=== PATIENT | female | born 1980 | race Caucasian/White ===

== ENCOUNTER 2018-04-22 09:40 | Inpatient (IN) | payer OTHER ==
--- NOTE | 2018-04-22 11:06 | HP ---
General Information - Reason for Visit Labor - General Information Maternal Age: 37 Grav: 1 Para: 0 SAB: 0 IEA: 0 Estimated Due Date: 04/15/18 Determined By: Early Ultrasound Gestational Age in Weeks/Days: 41 weeks Maternal Blood Type and Rh: B Positive - Results this Serology/RPR Result: Non-Reactive Rubella Result: Immune HBsAg Result: Negative HIV Result: Negative Past Medical History Delivery History: See Records Delivery History Comment: Primip Pertinent Past Medical History: See Records Past Medical History Comment: Hx of back pain Pertinent Past Surgical History: See Records Past Surgical History Comment: 1998 LEEP 2006 Lasik Pertinent Family History: See Records Family History Comment: Father: . Cancer Mother: Thyroid disease - Antepartal Records Antepartal Records: Reviewed, Complicated by: - AMA age 38 at [facility] NIPT WNL. Fibroid Uterus. Transfer from [facility]. Zika testing negtive Review of Systems Constitutional: Uncomfortable CV Complaint: No Respiratory: Shortness of Breath: No Gastrointestinal: No Nausea/Vomiting, Normal Bowel Movement Genitourinary: Bleeding, Leaking Fluid, No Dysuria Musculoskeletal: Contractions, Pressure Neurological: No Headache, No Visual Changes Movement: Normal Exam Allergies/Adverse Reactions: Allergies No Known Allergies Allergy (Verified 12/24/17 12:08) Vital Signs 04/22/18 10:28 Temperature 98 F Pulse Rate 80 Respiratory 18 Rate Blood Pressure 127/81 (mmHg) - Measurements Height: 5 ft 7 in Weight: 185 lb Body Mass Index (BMI): 29.0 Pre- Weight: 145 lb - Exam Breast: Breast Exam Deferred CVA: No CVA Tenderness Extremities: No Edema Heart: Normal Rhythm/Heart Sounds HEENT: No Significant Findings Lungs: Clear Bilaterally Rectal: Rectal Exam Deferred Reflexes: DTR 2+ Thyroid: No Thyromegaly - Abdominal Exam Abdomen Exam: Non-Tender - Ultrasound/Biophysical Profile Ultrasound Status: Not Done Targeted Exam Findings See L&D Outpatient Visit Provider Note for Findings: N/A Estimated Weight: 8lbs by Lacho Cervical Exam: 7cm Effacement: 80% Station: -2 Presenting Part: Vertex Membrane Status: SROM Amniotic Fluid Evaluation: Gross Rupture, Clear Sterile Speculum Exam: Not done Bleeding/Discharge: Bloody Show EFM Findings - External Monitor Findings Baseline Heart Rate: 125 External Monitor Findings: Accelerations Present, No Pattern of Variable or Late Decelerations, Variability Moderate, Baseline Stable External Monitor Findings Comment: No evidence of metabolic acidemia Contractions: Regular, Moderate, Strong, 45-90 Seconds, >90 Seconds Contraction Frequency: q 2-3 min Assessment/Plan - Assessment IUP at 41 weeks in labor - Obstetrical Risk Factors Obstetrical Risk Factors: Post-Dates - Plan Plan: Observe, Admit - Anticipate Vaginal Delivery Plan Comment: Admit. Pt desires hydrotherapy for pain mgmt. Will fill tub. Anticipate - Date/Time of Admission Date of Admission: 04/22/18 Time of Admission: 10:20
[2018-04-22] MEDS ORDERED: Acetaminophen TAB* 325 MG PO PRN (12:41)
[2018-04-22] MEDS ORDERED: Witch Hazel PAD* JAR TOPICAL PRN (12:41)
[2018-04-22] MEDS ORDERED: Glycerin ADULT SUPP PR PRN (12:41)
--- NOTE | 2018-04-22 12:44 | PROCNOTE ---
[facility]: Delivery Note - Nursery Level of Nursery: Regular/Bedside - Perineum Perineal Injury: 1st Degree Perineal Repair: By Delivering Practioner - Events Delivery Events of Note: None Apply - pt pushed well x 20 minutes
[2018-04-22] MEDS: Docusate CAP* 100 MG PO SCH ×2 (16:03→21:33)
[2018-04-22] MEDS: Dibucaine 1% 28.35 GM TUBE PR PRN (16:21)
[2018-04-22] MEDS ORDERED: Simethicone TAB* 80 MG TAB.CHEW PO SCH (17:30)
[2018-04-23 07:12] LABS: ABS Basophils 0.2 10^3/ul (0-0.2); ABS Eosinophils 0 10^3/ul (0-0.6); ABS Lymphocytes 1.3 10^3/ul (1.0-4.8); ABS Neutrophils 12.5 10^3/ul (1.5-7.7); ABS Nucleated RBC 0 10^3/ul; Eosinophil % 0.2 % (0-6); Hematocrit 29 % (35-47); Hemoglobin 9.9 g/dl (12.0-16.0); Lymphocyte % 8.5 % (25-47); Mean Corpuscular HGB Conc 34 g/dl (31-36); Mean Corpuscular Hemoglobin 31 pg (27-31); Mean Corpuscular Volume 89 fL (80-97); Mean Platelet Volume 10.4 um3 (7.4-10.4); Nucleated Red Blood Cells % 0; Platelet Count 132 10^3/ul (150-450); Red Blood Count 3.24 10^6/ul (4.00-5.40); Red Cell Distribution Width 14 % (10.5-15)
[2018-04-23] MEDS: Ferrous Gluconate TAB* 324 MG TAB PO SCH ×2 (08:55→21:17)
[2018-04-23] MEDS: Docusate CAP* 100 MG PO SCH ×2 (08:56→21:18)
--- NOTE | 2018-04-23 09:28 | PTEDU ---
Patient Name: MERA LEE MERA LEE selected video: Follow Me Mum: [employer] to Successful to view on 04/23/2018 a t 9:28:09 [id number]
[2018-04-23] MEDS: Ibuprofen TAB* 600 MG PO PRN ×2 (10:14→17:50)
[2018-04-24] MEDS: Ibuprofen TAB* 600 MG PO PRN (07:45)
[2018-04-24] MEDS: Docusate CAP* 100 MG PO SCH (07:46)
[2018-04-24] MEDS: Ferrous Gluconate TAB* 324 MG TAB PO SCH (07:46)
[2018-04-24] MEDS: Dibucaine 1% 28.35 GM TUBE PR PRN (07:46)
[2018-04-24 09:43] VITALS: BP 102/53
== END 2018-04-24 14:34 | disposition home or self-care (01) | DRG 560 ==
LOC: MCHOBOUT 09:40 → MCHOB 10:18
PROVIDERS: ADMIT Midwife; ATTEND Midwife
PROC: 0HQ9XZZ Repair Perineum Skin, External Approach (ICD-10-PCS; principal; 2018-04-22)
PROC: 10E0XZZ Delivery of Products of Conception, External Approach (ICD-10-PCS; 2018-04-22)
PROC: 4A1HXCZ Monitoring of Products of Conception, Cardiac Rate, External Approach (ICD-10-PCS; 2018-04-22)
PROC: 10907ZC Drainage of Amniotic Fluid, Therapeutic from Products of Conception, Via Natural or Artificial Opening (ICD-10-PCS; 2018-04-22)
DX: O48.0 Post-term pregnancy (principal); O22.43 Hemorrhoids in pregnancy, third trimester; Z3A.41 41 weeks gestation of pregnancy; O34.13 Maternal care for benign tumor of corpus uteri, third trimester; D25.9 Leiomyoma of uterus, unspecified; Z37.0 Single live birth; Z80.9 Family history of malignant neoplasm, unspecified; Z83.49 Family history of other endocrine, nutritional and metabolic diseases; O70.0 First degree perineal laceration during delivery; O90.81 Anemia of the puerperium
CPT/HCPCS: 36415; 85025; A9270-GY